=== PATIENT | female | born 1975 | race Two or more races ===

== ENCOUNTER 2020-11-12 12:09 | Emergency (ER) | payer MEDICAID, OTHER ==
[~2020-11-12] VITALS: Ht 154.9 cm; Wt 102.1 kg
[2020-11-12 12:45] VITALS: BP 128/83
== END 2020-11-12 13:53 | disposition home or self-care (01) ==
LOC: ER 12:09
DX: H53.8 Other visual disturbances (principal); R09.81 Nasal congestion; E11.9 Type 2 diabetes mellitus without complications
CPT/HCPCS: 70450

== ENCOUNTER 2023-03-30 12:39 | Emergency (ER) | payer MEDICAID ==
[~2023-03-30] VITALS: Ht 154.9 cm; Wt 93.4 kg
[2023-03-30 15:12] VITALS: BP 143/91; PULSE 77; RESP 16; TEMP 98; O2SAT 99
[2023-03-30] MEDS ORDERED: KETOROLAC TROMETH 60MG/2ML VIAL IM ONE (15:30)
[2023-03-30] MEDS ORDERED: IBUP-1455 PO (16:17)
[2023-03-30] MEDS ORDERED: ACE3T PO (16:17)
== END 2023-03-30 16:22 | disposition home or self-care (01) ==
LOC: ER 12:39
DX: M79.672 Pain in left foot (principal); E11.9 Type 2 diabetes mellitus without complications
CPT/HCPCS: 73630; 96372; 99283; J1885

== ENCOUNTER 2024-09-13 18:28 | Emergency (ER) | payer MEDICAID, OTHER ==
[~2024-09-13] VITALS: Ht 154.9 cm; Wt 94.2 kg
[~2024-09-13 18:28] MED LIST: ACE3T PO; IBUP-1455 PO
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
[2024-09-13] MEDS ORDERED: ONDANSETRON ODT 4 MG TAB PO ONE (19:45)
[2024-09-13] MEDS ORDERED: KETOROLAC TROMETH 60MG/2ML VIAL IM ONE (19:45)
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
[2024-09-13] MEDS ORDERED: TIZA-142 PO (21:02)
[2024-09-13] MEDS ORDERED: METH4PAK PO (21:02)
[2024-09-13 21:22] VITALS: BP 129/82; PULSE 89; TEMP 98.2
== END 2024-09-13 22:03 | disposition home or self-care (01) ==
LOC: ER 18:35
DX: S13.4XXA Sprain of ligaments of cervical spine, initial encounter (principal); S29.012A Strain of muscle and tendon of back wall of thorax, initial encounter; S33.5XXA Sprain of ligaments of lumbar spine, initial encounter; G44.319 Acute post-traumatic headache, not intractable; Z79.899 Other long term (current) drug therapy; E11.9 Type 2 diabetes mellitus without complications; V43.52XA Car driver injured in collision with other type car in traffic accident, initial encounter; Y93.I9 Activity, other involving external motion; Y92.488 Other paved roadways as the place of occurrence of the external cause; Y99.8 Other external cause status
CPT/HCPCS: 72040; 72070; 72100